=== PATIENT | female | born 1960 | race Caucasian/White ===

== ENCOUNTER 2017-01-21 16:47 | Emergency (ER) | payer MEDICAID, OTHER ==
[~2017-01-21] VITALS: Ht 163.8 cm; Wt 58.8 kg
[2017-01-21 16:48] VITALS: BP 116/82
[2017-01-21] MEDS ORDERED: DIPHENHYDRAMINE 25 MG CAPSULE ONE (17:12)
[2017-01-21] MEDS ORDERED: FAMOTIDINE 20 MG TABLET ONE (17:13)
[2017-01-21] MEDS ORDERED: FAMOTIDINE 20 MG TABLET PO ONE (17:30)
[2017-01-21] MEDS ORDERED: DIPHENHYDRAMINE 25 MG CAPSULE PO ONE (17:30)
== END 2017-01-21 17:47 | disposition home or self-care (01) ==
LOC: ED 17:00
DX: L50.0 Allergic urticaria (principal); E11.9 Type 2 diabetes mellitus without complications; F17.200 Nicotine dependence, unspecified, uncomplicated; Z59.0 Homelessness
CPT/HCPCS: 99284; J7512; Q0163

== ENCOUNTER 2020-10-06 22:05 | Emergency (ER) | payer MEDICAID ==
[~2020-10-06] VITALS: Ht 165.1 cm; Wt 63.3 kg
[2020-10-06 22:17] VITALS: BP 160/86
[2020-10-06 22:59] LABS: BASOPHILS % (AUTO) 1 % (0-1); EOSINOPHILS % (AUTO) 2 % (1-7); LYMPHOCYTES % (AUTO) 33 % (22-44); MEAN CORPUSCULAR HEMOGLOBIN 31.3 pg (27.0-34.8); MEAN CORPUSCULAR HGB CONC 34.5 g/dL (32.4-35.8); MEAN PLATELET VOLUME 6.5 fL (7.4-10.4); MONOCYTES % (AUTO) 7 % (2-9); NEUTROPHILS % (AUTO) 57 % (42-75); PLATELET COUNT 330 x10^3/uL (130-400); RED CELL DISTRIBUTION WIDTH 13.1 % (9.6-15.2)
[2020-10-06 23:12] LABS: ALANINE AMINOTRANSFERASE 16 U/L (12-78); ALBUMIN 3.6 g/dL (3.4-5.0); ANION GAP 5 mmol/L (5-15); CALCIUM 8.5 mg/dL (8.5-10.1); CHLORIDE 110 mmol/L (98-107)
[2020-10-06 23:14] LABS: ALKALINE PHOSPHATASE 71 U/L (45-117); BILIRUBIN,TOTAL 0.7 mg/dL (0.2-1.0)
--- NOTE | 2020-10-07 00:05 | NUR ---
PAN PULLER: PT. TO ROOM FROM LOBBY AT THIS TIME. PT. GIVEN [employer] CUP AND CLEAN CATCH INSTRUCITONS.
--- NOTE | 2020-10-07 00:25 | NUR ---
WALKED COVID SWAB TO LAB.
[2020-10-07 00:38] LABS: MICROSCOPIC AUTO
--- NOTE | 2020-10-07 00:50 | NUR ---
PATIENT ATTEMPTING STOOL SAMPLE AT THIS TIME BUT STATES IT PROBABLY WONT HAPPEN UNLESS SHE EATS SOME FOOD.
--- NOTE | 2020-10-07 01:02 | NUR ---
PATIENT STATES UNABLE TO PROVIDE STOOL SAMPLE.
== END 2020-10-07 01:29 | disposition home or self-care (01) ==
LOC: ED 23:59
DX: R19.7 Diarrhea, unspecified (principal); R10.9 Unspecified abdominal pain; Z20.822 Contact with and (suspected) exposure to COVID-19; K21.9 Gastro-esophageal reflux disease without esophagitis; E11.9 Type 2 diabetes mellitus without complications; F17.200 Nicotine dependence, unspecified, uncomplicated
CPT/HCPCS: 36415; 80053; 81001; 85025; 87086; 99283; U0003; U0005